=== PATIENT | female | born 1985 | race Caucasian/White ===

== ENCOUNTER 2016-12-13 17:05 | Observation (INO) | payer SELFPAY ==
[2016-12-13 17:53] VITALS: BP 135/71
[2016-12-13] MEDS ORDERED: ALBU8HFA PO (17:54)
[2016-12-13] MEDS ORDERED: PREN-64 PO (17:55)
== END 2016-12-13 18:45 | disposition home or self-care (01) ==
LOC: 4S 17:05
PROVIDERS: ADMIT Obstetrics & Gynecology; ATTEND Obstetrics & Gynecology
DX: O62.9 Abnormality of forces of labor, unspecified (principal); O26.892 Other specified pregnancy related conditions, second trimester; R10.9 Unspecified abdominal pain; Z3A.39 39 weeks gestation of pregnancy
CPT/HCPCS: 59025; G0378